=== PATIENT | male | born 2000 | race Two or more races ===

== ENCOUNTER 2025-07-17 23:34 | Emergency (ER) | payer MEDICAID ==
[~2025-07-17] VITALS: Ht 172.7 cm; Wt 88.5 kg
[2025-07-18 02:03] VITALS: TEMP 98.4
[2025-07-18] MEDS: IBUPROFEN 600 MG TABLET PO ONE (02:31)
[2025-07-18] MEDS ORDERED: IBUPROFEN 600 MG TABLET ONE (02:31)
[2025-07-18] MEDS ORDERED: IBUP-1490 PO (04:11)
[2025-07-18 04:20] VITALS: BP 105/50; O2SAT 99
== END 2025-07-18 04:20 | disposition home or self-care (01) ==
LOC: ER 23:40
DX: S00.83XA Contusion of other part of head, initial encounter (principal); Z88.0 Allergy status to penicillin; W21.02XA Struck by soccer ball, initial encounter; Y93.66 Activity, soccer; Y92.322 Soccer field as the place of occurrence of the external cause; Y99.8 Other external cause status
CPT/HCPCS: 70450-TC; 70486-TC